=== PATIENT | female | born 1965 | race Hispanic/Latino ===

== ENCOUNTER 2016-06-26 09:47 | Day surgery (SDC) | payer OTHER ==
[~2016-06-26] VITALS: Ht 157.5 cm; Wt 78.2 kg
[~2016-06-26 09:47] MED LIST: 0.9% Sodium Chloride 1,000 ML IV SCH; ATRV10T PO; HYDR25TA4 PO; MULT-666 PO; OMEG-15 PO; Sodium Chloride LOK Flush 10 mL Syringe IV PRN; fentaNYL-PF 50 mCg/mL 2 mL Inj IVPUSH PRN
[2016-06-26 10:02] VITALS: BP 134/82; PULSE 56; RESP 16; O2SAT 97
[2016-06-26 10:50] VITALS: BP 110/71; PULSE 65; O2SAT 100
[2016-06-26 11:02] VITALS: BP 112/71; PULSE 56; RESP 16; O2SAT 100
[2016-06-26 11:06] VITALS: BP 118/79; PULSE 60; RESP 16; O2SAT 100
--- NOTE | 2016-06-26 11:17 | ENDO ---
[address] [address] ENDOSCOPY PROCEDURE PATIENT: RUPERT ANDREWS : 1965 MR#: [id number] ADMIT: 06/26/2016 JOB ID: [id number] PROCEDURE: Colonoscopy. INDICATION: Screening. ANESTHESIA: Patient's ASA classification is two. Mallampati score is two. MEDICATIONS: 1. Versed 3 mg. 2. Fentanyl 75 mcg. INSTRUMENT USED: PCF H 190 DL. PREPARATION QUALITY: Good. PROCEDURE DETAILS: After informed consent was obtained, the patient was brought into the GI suite, where she was placed on oxygen via nasal cannula and monitored with continuous pulse oximeter, telemetry, and blood pressure monitoring. A time-out was performed, then she was placed in the left lateral decubitus position and medications were administered for sedation. Digital rectal exam was performed, which was unremarkable. The colonoscope was then inserted into the rectum and advanced under direct visualization to the cecum, which was identified by the presence of the ileocecal valve and appendiceal orifice. Once the cecum was reached the colonoscope was withdrawn back into the rectum as the mucosa and lumen were examined. In the rectum, retroflexion was performed. Following retroflexion, the remaining air in the rectum was suctioned and the procedure was completed. FINDINGS: 1. Scattered diverticula were seen throughout the entire colon. 2. In the transverse colon, there was a diminutive polyp that was removed with cold biopsy forceps. IMPRESSION: 1. Pandiverticulosis. 2. Transverse colon polyp. RECOMMENDATIONS: 1. Fiber rich diet. 2. Repeat colonoscopy pending polyp pathology results. COMPLICATIONS: None. ESTIMATED BLOOD LOSS: Less than 5 mL.
--- NOTE | 2016-06-29 10:45 | PATH ---
SURGICAL PATHOLOGY Attending Physician:Darwin Chan CASE STATUS: Signed Out PATIENT NAME: RUPERT ANDREWS PID: [id number] : 1965 DATE COLLECTED:06/26/2016 17:02 SPECIMEN: Colon, Biopsy CLINICAL HISTORY: A: TRANSVERSE POLYP X1 FINAL DIAGNOSIS: 1.TRANSVERSE COLON POLYP: HYPERPLASTIC POLYP. ICD10 CODE D12.6 GROSS DESCRIPTION: The specimen is received in one formalin filled container labeled with the patient's name, sublabeled "transverse polyp x1" and consists of 2 portions of tissue which aggregate to 0.5 x 0.3 x 0.2 CM. The specimen is entirely submitted in one cassette. 06/26/2016 DAC MICRO DESCRIPTION: See diagnosis. ICD-9 CODES: CPT CODES: 1: 79524 Electronically Signed Out Isaak Blanco MD [facility] Pathology [facility] [address], [place] [address] Technical component performed at [facility], [facility] [address], [place], [address]
== END 2016-06-26 23:59 | disposition home or self-care (01) ==
LOC: END 09:47
PROVIDERS: ATTEND Internal Medicine Gastroenterology
DX: Z12.11 Encounter for screening for malignant neoplasm of colon (principal); K63.5 Polyp of colon; K57.32 Diverticulitis of large intestine without perforation or abscess without bleeding; I10 Essential (primary) hypertension
CPT/HCPCS: 45380; J2250; J7030